=== PATIENT | female | born 1935 | race Caucasian/White ===

== ENCOUNTER 2021-08-18 14:54 | Inpatient (IN) | payer OTHER ==
[~2021-08-18] VITALS: Ht 165.1 cm; Wt 66.2 kg
[~2021-08-18 14:54] MED LIST: FLUOCINOLON118.28 M1 T; KENALOG 0.1%80 GM T
[2021-08-18 20:00] VITALS: BP 89/65
== END 2021-08-19 11:06 | DRG 871 ==
LOC: EDHOLD 14:54 → 4E 14:54
PROVIDERS: ADMIT Internal Medicine; ATTEND Internal Medicine
PROC: 5A0935A Assistance with Respiratory Ventilation, Less than 24 Consecutive Hours, High Flow/Velocity Cannula (ICD-10-PCS; principal; 2021-08-18)
DX: A41.9 Sepsis, unspecified organism (principal); I21.4 Non-ST elevation (NSTEMI) myocardial infarction; J18.9 Pneumonia, unspecified organism; N17.0 Acute kidney failure with tubular necrosis; G93.41 Metabolic encephalopathy; N39.0 Urinary tract infection, site not specified; E87.2 Acidosis; Z51.5 Encounter for palliative care; R65.20 Severe sepsis without septic shock; Z20.822 Contact with and (suspected) exposure to COVID-19; D75.1 Secondary polycythemia; E87.8 Other disorders of electrolyte and fluid balance, not elsewhere classified; E80.6 Other disorders of bilirubin metabolism